=== PATIENT | male | born 1955 | race African-American/Black ===

== ENCOUNTER 2021-01-28 19:11 | Inpatient (IN) | payer MEDICARE, OTHER ==
[~2021-01-28] VITALS: Ht 185.4 cm; Wt 103.0 kg
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
[2021-01-28] MEDS ORDERED: DEXTROSE 50%-WATER 50 ML DISP.SYRIN ONE (19:32)
--- NOTE | 2021-01-28 19:38 | NUR ---
VERBAL ORDER DEXTROSE 50. CARRIED OUT
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
[2021-01-28] MEDS ORDERED: DEXTROSE 50%-WATER 50 ML DISP.SYRIN IV ONE (20:00)
[2021-01-28 20:50] LABS: BASOPHILS % (AUTO) 0.2 % (0.0-2.0); EOSINOPHILS % (AUTO) 0.4 % (0.0-6.0); HEMATOCRIT 49 % (39-51); HEMOGLOBIN 16.1 g/dL (13.5-17.5); LYMPHOCYTES % (AUTO) 8.5 % (20.0-44.0); MEAN CORPUSCULAR HGB CONC 33 g/dl (31.0-36.0); MEAN CORPUSCULAR VOLUME 81 fL (80-96); MONOCYTES # (AUTO) 1.3 /CMM (0.1-1.30); NEUTROPHILS # (AUTO) 9.6 /CMM (1.8-8.9); NEUTROPHILS % (AUTO) 79.9 % (43.0-81.0); PLATELET COUNT (AUTO) 175 /CMM (150-450); RED BLOOD CELL COUNT(AUTO) 5.97 MIL/uL (4.5-6.0)
[2021-01-28 21:06] LABS: ALANINE AMINOTRANSFERASE 23 U/L (12-78); ALBUMIN 3.9 g/dL (3.4-5.0); ALCOHOL, BLOOD < 3 mg/dL (0-0); ALKALINE PHOSPHATASE 91 U/L (46-116); ASPARTATE AMINOTRANSFERASE 47 U/L (15-37); BILIRUBIN,DIRECT 0.5 mg/dL (0.0-0.2); BILIRUBIN,TOTAL 1.6 mg/dL (0.2-1.0); CALCIUM, SERUM 9.6 mg/dL (8.5-10.1); CARBON DIOXIDE 25 mmol/L (21-32); CHLORIDE 97 mmol/L (98-107); CREATININE 1.2 mg/dL (0.6-1.3); GLUCOSE 78 mg/dL (74-106); POTASSIUM 4.1 mmol/L (3.5-5.1); SODIUM SERUM 134 mmol/L (136-145); UREA NITROGEN, BLOOD 19 mg/dL (7-18)
[2021-01-28 21:08] LABS: ACETAMINOPHEN < 10 ug/ml (10-30)
[2021-01-28 21:35] LABS: BILIRUBIN,URINE MODERATE (NEGATIVE); COLOR,URINE ORANGE (YELLOW); LEUKOCYTE ESTERASE ,URINE Negative (NEGATIVE); NITRITE, URINE Negative (NEGATIVE); PROTEIN,URINE 30 mg/dl (NEGATIVE); UGLUCOSE 100 MG/DL mg/dL (NEGATIVE)
[2021-01-28 22:04] LABS: BACTERIA,URINE Rare /HPF (None Seen); WBC,URINE 0-2 /HPF (0-3)
[2021-01-28 22:05] LABS: SQUAMOUS EPITHELIAL CELL,UR 0-2 /HPF (None Seen)
--- NOTE | 2021-01-28 22:35 | NUR ---
PT STILL NOTED HAVING HR OF 116. PROVIDER NOTIFIED. VERBAL ORDER RECEIVED TO GIVEN 1L NS BOLUS X 1. NOTED AND CARRIED OUT.
[2021-01-28] MEDS ORDERED: IV NS 0.9% 500 ML BAG IV ONE (23:00)
--- NOTE | 2021-01-28 23:37 | NUR ---
covid swab sent to lab
[2021-01-29] MEDS ORDERED: HYDROCODONE/APAP 5/325MG TABLET PO PRN
[2021-01-29] MEDS ORDERED: ZOLPIDEM TARTRATE 5 MG TABLET PO PRN
[2021-01-29] MEDS ORDERED: Z GUARD REMEDY 2 OZ OINT TP PRN
[2021-01-29] MEDS ORDERED: ACETAMINOPHEN 325 MG TABLET PO PRN
[2021-01-29] MEDS ORDERED: MAGNESIUM HYDROXIDE 30 ML UDC PO PRN
[2021-01-29] MEDS ORDERED: MAG HYDROX/AL HYDROX/SIMETH 30 ML UDC PO PRN
[2021-01-29] MEDS ORDERED: ONDANSETRON HCL/PF 4 MG/2 ML VIAL IVP PRN
[2021-01-29] MEDS ORDERED: IV D5/ 0.9% NACL 1,000 ML IV PRN
--- NOTE | 2021-01-29 00:36 | NUR ---
NEGATIVE COVID PER LAB
--- NOTE | 2021-01-29 00:40 | NUR ---
CALLED RN SUP FOR TELE BED
--- NOTE | 2021-01-29 01:39 | NUR ---
gave report to Pedro Pablo Silverman for meagan
[2021-01-29 02:00] VITALS: BP 143/90
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
--- NOTE | 2021-01-29 03:26 | NUR ---
RN NOTES: PATIENT COMPLAINED OF CHEST PAIN, LOCALISED NOT RADIATING TO SHOULDERS, V/S CHECKED BP-132/56 CA-102 RR-20 SPO2-97% ROOM AIR, NOTIFIED , SHE ORDERED TO DO TROPONIN, D-MIMER ALONG WITH OTHER LABS TO BE DONE AT 0400.SPOKE WITH TAYLER, REQUESTED TO DO BLOOD DRAW AT 0400.
--- NOTE | 2021-01-29 03:36 | NUR ---
RN NOTES: REQUEST FOR TYLENOL,GIVEN; EXPLAINED TO HIM WILL WAIT FOR THE PUBLIC HEALTH PROGRAM MANAGER AND WILL DO BLOOD TEST.
--- NOTE | 2021-01-29 03:56 | NUR ---
RN NOTES: - AROUND 0230 IVF D5NS AT 60 ML/HR STARTED, IV CANNULA ON THE RIGHT WRIST G#20 PATENT, BUT PATIENT IS COMPLAINING HE HAS PAIN AND HE REFUSE FOR IVF, HE SAID "DO IT LATER", TEMPORARILY REMOVE, HE ATE A LOT OF BARBER CRACKER , HE DRINK CRANBERRY AND APPLE JUICE, HE ALSO ATE JELLY AND PUDDING. INSTRUCT TO EAT SLOWLY.HE LOOKS VERY HUNGRY.
--- NOTE | 2021-01-29 04:03 | NUR ---
RN NOTES: POOL NURSE CAME IN TO EXTRACT BLOOD, AWAITING FOR RESULT, KEPT ON CLOSE WATCH.
--- NOTE | 2021-01-29 05:53 | NUR ---
RN NOTES: -TROPONIN 0.017, HE WAS GIVEN APPLE SAUCE , HE WANTS TO EAT MORE EXPLAINED TO HIM TO EAT SLOWLY AND NOT IN A WILLIS.AFTER HE EAT HE WAS ABLE TO SLEEP AND REST.
[2021-01-29] MEDS ORDERED: SERT-438 PO (07:03)
[2021-01-29] MEDS ORDERED: ENAL10TA39 PO (07:03)
[2021-01-29] MEDS ORDERED: OMEP20CA15 PO (07:03)
[2021-01-29] MEDS ORDERED: CLOP75TA15 PO (07:03)
[2021-01-29] MEDS ORDERED: METO25TA20 PO (07:03)
[2021-01-29] MEDS ORDERED: TRAZ-257 PO (07:03)
[2021-01-29] MEDS ORDERED: ROSU20TA32 PO (07:03)
--- NOTE | 2021-01-29 07:09 | NUR ---
RN NOTES: - HE REQUEST TO START IV FLUIDS LATER, TRIED TO EXPLAIN THE RISK AND BENEFITS,HE WENT BACK TO SLEEP. - AWAITING FOR OTHER LAB RESULTS.NO MORE CHEST PAIN. -ENDORSED FOR CONTINUITY OF CARE.
[2021-01-29] MEDS ORDERED: RISP1TAB97 PO (07:11)
[2021-01-29] MEDS ORDERED: PRAZ1CAP17 PO (07:11)
--- NOTE | 2021-01-29 07:54 | NUR ---
MS/RN OPENING NOTES RECEIVED PATIENT ON BED AWAKE ALERT AND ORIENTED X 2-3. PATIENT IS ON ROOM AIR SATURATING WELL. PATIENT IN NO APPARENT RESPIRATORY DISTRESS NOTED. NO COMPLAINED OF PAIN NOTED AT THIS TIME. WILL CONTINUE TO MONITOR.
[2021-01-29 08:00] VITALS: BP 126/78
[2021-01-29] MEDS: ENOXAPARIN SODIUM 40 MG/0.4 ML DISP.SYRIN SQ SCH (08:22)
[2021-01-29] MEDS: PANTOPRAZOLE 40 MG TABLET.DR PO SCH (09:55)
[2021-01-29] MEDS: SERTRALINE HCL 50 MG TABLET PO SCH (09:55)
[2021-01-29] MEDS: CLOPIDOGREL BISULFATE 75 MG TABLET PO SCH (09:56)
[2021-01-29] MEDS: ENALAPRIL MALEATE (10 MG) 10 MG TABLET PO SCH (09:56)
[2021-01-29] MEDS ORDERED: ASPI-1169 PO (14:34)
[2021-01-29] MEDS ORDERED: risperiDONE 1 MG TABLET PO PRN (15:00)
[2021-01-29 16:00] VITALS: BP 115/58
[2021-01-29] MEDS: METOPROLOL TARTRATE 25 MG TABLET PO SCH (16:23)
--- NOTE | 2021-01-29 16:24 | NUR ---
MS/RN NOTES BP 115/58 P 84 METOPROLOL 25 MG 1 TAB PO WAS NOT GIVEN. WILL CONTINUE TO MONITOR.
--- NOTE | 2021-01-29 16:50 | NUR ---
Patient lives with family. He is ambulatory and independent with adl's.Has no DME or homehealth reported. Current dc plan is to return home. Addendum: 01/29/21 at 1650 by SHARMILA BETANCOURT RN Amended: Links added.
[2021-01-29] MEDS: ATORVASTATIN 40 MG TABLET PO SCH (17:07)
[2021-01-29] MEDS: PRAZOSIN HCL 1 MG CAPSULE PO SCH (17:07)
--- NOTE | 2021-01-29 17:08 | NUR ---
MS/RN NOTES BP 115/58 P 84 MINIPRES 1 MG WAS NOT GIVEN. WILL CONTINUE TO MONITOR.
--- NOTE | 2021-01-29 18:44 | NUR ---
MS/RN CLOSING NOTES PATIENT IS ON BED. ALERT AND ORIENTED X3. PATIENT IS ON ROOM AIR SATURATION 97%. PATIENT IN NO APPARENT RESPIRATORY DISTRESS NOTED. NO COMPLAINED OF PAIN NOTED AT THIS TIME. SEEN AND EXAMINED BY MD WITH ORDERS MADE AND CARRIED OUT. ALL DUE MEDICATIONS WAS GIVEN. IV ACCESS AT RIGHT WRIST # 20G PATENT AND INTACT. SAFETY PRECAUTIONS WAS IN PLACED. BED IN LOWEST POSITION AND LOCKED. SIDE RAILS UP X2. CALL LIGHT WITHIN REACH. SEEN AND ASSESS BY DR. TIERNEY. WILL ENDORSED TO WEDDING FLORIST FOR BASSAM.
[2021-01-29 20:00] VITALS: BP 141/84
[2021-01-29] MEDS: TRAZODONE 50 MG TABLET PO SCH (21:48)
[2021-01-29] MEDS: OLANZAPINE ZYDIS 5 MG TAB.RAPDIS PO SCH (21:48)
[2021-01-29] MEDS ORDERED: risperiDONE 1 MG TABLET PO SCH (22:00)
[2021-01-30 06:30] LABS: BASOPHILS % (AUTO) 0.4 % (0.0-2.0); EOSINOPHILS % (AUTO) 2.4 % (0.0-6.0); HEMATOCRIT 43 % (39-51); HEMOGLOBIN 14.3 g/dL (13.5-17.5); LYMPHOCYTES # (AUTO) 1.1 /CMM (0.8-4.8); LYMPHOCYTES % (AUTO) 22.1 % (20.0-44.0); MEAN CORPUSCULAR HGB CONC 33 g/dl (31.0-36.0); MEAN CORPUSCULAR VOLUME 81 fL (80-96); MONOCYTES # (AUTO) 0.6 /CMM (0.1-1.30); MONOCYTES % (AUTO) 11.1 % (2.0-12.0); NEUTROPHILS # (AUTO) 3.3 /CMM (1.8-8.9); PLATELET COUNT (AUTO) 174 /CMM (150-450); RED BLOOD CELL COUNT(AUTO) 5.31 MIL/uL (4.5-6.0); WHITE BLOOD COUNT (AUTO) 5.2 K/uL (4.3-11.0)
--- NOTE | 2021-01-30 06:30 | NUR ---
MS RN NOTES AWAKE & RESPONSIVE. NOT IN ANY DISTRESS. NO SOB NOTED. DENIES ANY PAIN OR DISCOMFORT AT THIS TIME. MONITORED ACCORDINGLY. CALL LIGHT WITHIN REACH. BED IN LOWEST POSITION. SR UP X 2 FOR SAFETY. WILL ENDORSE TO NEXT SHIFT.
[2021-01-30 06:37] LABS: CALCIUM, SERUM 8.4 mg/dL (8.5-10.1); CREATININE 0.9 mg/dL (0.6-1.3); MAGNESIUM 2.3 mg/dL (1.8-2.4); PHOSPHORUS 4.2 mg/dL (2.5-4.9); POTASSIUM 4.4 mmol/L (3.5-5.1)
[2021-01-30] MEDS: PANTOPRAZOLE 40 MG TABLET.DR PO SCH (07:35)
--- NOTE | 2021-01-30 07:41 | NUR ---
MS/RN OPENING NOTES RECEIVED PATIENT ON BED AWAKE ALERT AND ORIENTED X 3. PATIENT IS ON ROOM AIR SATURATING WELL. PATIENT IN NO APPARENT RESPIRATORY DISTRESS NOTED. NO COMPLAINED OF PAIN NOTED AT THIS TIME. WILL CONTINUE TO MONITOR.
[2021-01-30 08:00] VITALS: BP 135/78
[2021-01-30] MEDS: CLOPIDOGREL BISULFATE 75 MG TABLET PO SCH (08:16)
[2021-01-30] MEDS: ENALAPRIL MALEATE (10 MG) 10 MG TABLET PO SCH (08:16)
[2021-01-30] MEDS: METOPROLOL TARTRATE 25 MG TABLET PO SCH ×2 (08:16→17:00)
[2021-01-30] MEDS: SERTRALINE HCL 50 MG TABLET PO SCH (08:17)
[2021-01-30] MEDS: ENOXAPARIN SODIUM 40 MG/0.4 ML DISP.SYRIN SQ SCH (08:21)
[2021-01-30] MEDS ORDERED: PRAZOSIN HCL 1 MG CAPSULE PO SCH (09:00)
[2021-01-30] MEDS ORDERED: METOPROLOL TARTRATE 25 MG TABLET PO SCH (09:00)
[2021-01-30 16:00] VITALS: BP 119/72
[2021-01-30] MEDS: ATORVASTATIN 40 MG TABLET PO SCH (17:21)
[2021-01-30] MEDS: PRAZOSIN HCL 1 MG CAPSULE PO SCH (17:22)
--- NOTE | 2021-01-30 17:24 | NUR ---
MS/RN NOTES BP 119/72 P 82 METOPROLOL 25 MG 1 TAB PO AND MINIPRES 1MG 1 TAB PO WAS NOT GIVEN.
--- NOTE | 2021-01-30 18:44 | NUR ---
MS/RN CLOSING NOTES PATIENT IS ON BED. ALERT AND ORIENTED X 2-3. PATIENT IS ON ROOM AIR SATURATION 96%. PATIENT IN NO APPARENT RESPIRATORY DISTRESS NOTED. NO COMPLAINED OF PAIN NOTED AT THIS TIME. SEEN AND EXAMINED BY MD WITH ORDERS MADE AND CARRIED OUT. ALL DUE MEDICATIONS WAS GIVEN. IV ACCESS LEFT HAND # 22G PATENT AND INTACT. SAFETY PRECAUTIONS WAS IN PLACED. BED IN LOWEST POSITION AND LOCKED. SIDE RAILS UP X2. CALL LIGHT WITHIN REACH. WILL ENDORSED TO PROSTHETIC ASSISTANT FOR BASSAM.
--- NOTE | 2021-01-30 19:30 | NUR ---
MS/RN OPENING NOTES RECEIVED PATIENT RESTING IN BED. PATIENT IS ALERT AND ORIENTED X 3. PATIENTS BREATHING IS EVEN AND UNLABORED. PATIENT SHOWS NO SIGNS OF SOB OR RESPIRATORY DISTRESS. PATIENT STATES NO PAIN AT THIS TIME. IV ACCESS LEFT HAND INTACT FLUSHING WELL. SAFETY MEASURES ARE IN PLACE, BED IS LOCKED AND PLACED IN THE LOW POSITION, SIDE RAILS UP X 2, CALL LIGHT IS WITHIN REACH. WILL CONTINUE TO MONITOR THROUGH OUT SHIFT.
[2021-01-30 20:00] VITALS: BP 126/75
[2021-01-30] MEDS: TRAZODONE 50 MG TABLET PO SCH (22:09)
[2021-01-30] MEDS: OLANZAPINE ZYDIS 5 MG TAB.RAPDIS PO SCH (22:09)
--- NOTE | 2021-01-31 06:40 | NUR ---
MS/RN CLOSING NOTES PATIENT RESTING IN BED. PATIENT IS ALERT AND ORIENTED X 3. PATIENTS BREATHING IS EVEN AND UNLABORED. PATIENT SHOWS NO SIGNS OF SOB OR RESPIRATORY DISTRESS. IV ACCESS LEFT HAND INTACT FLUSHING WELL. SAFETY MEASURES ARE IN PLACE, BED IS LOCKED AND PLACED IN THE LOW POSITION, SIDE RAILS UP X 2, CALL LIGHT IS WITHIN REACH. WILL ENDORSE CARE TO DAY SHIFT NURSE.
--- NOTE | 2021-01-31 07:50 | NUR ---
MS RN OPENING NOTES PATIENT RESTING IN BED, PATIENT AOX3, BREATHING IS EVEN AND UNLABORED, NO SIGNS OF SOB OR RESPIRATPRY DISTRESS, IV ACCESS L HAND INTACT AND PATENT, BED LOCKED IN LOWEST POSITION , SIDE RAILS X2 , CALL LIGHT WITHIN EASY REACH AND ANSWERED PROMPTLY.
[2021-01-31 08:00] VITALS: BP 127/90
[2021-01-31] MEDS: PANTOPRAZOLE 40 MG TABLET.DR PO SCH (08:28)
[2021-01-31] MEDS: CLOPIDOGREL BISULFATE 75 MG TABLET PO SCH (08:28)
[2021-01-31] MEDS: ENOXAPARIN SODIUM 40 MG/0.4 ML DISP.SYRIN SQ SCH (08:28)
[2021-01-31] MEDS: METOPROLOL TARTRATE 25 MG TABLET PO SCH ×2 (08:29→17:22)
[2021-01-31] MEDS: ENALAPRIL MALEATE (10 MG) 10 MG TABLET PO SCH (08:30)
[2021-01-31] MEDS: SERTRALINE HCL 50 MG TABLET PO SCH (08:30)
[2021-01-31] MEDS ORDERED: OLAN5TAB6 PO (12:56)
--- NOTE | 2021-01-31 15:30 | NUR ---
It Program Auditor Consult: It Program Auditor consult requested for a substance abuse evaluation. Patient is a 65-year-old, black male who was admitted to the med-surg unit. Per chart, patient was brought in by paramedics due to hypoglycemia. SW met with the patient and discussed resources and discharge plan. Patient was alert and oriented x4. Patient was well-groomed. Patient stated that he lives with his mother and brother. Pt stated that he felt off and maybe had an anxiety attack. Per toxicology report, pt is positive for Amphetamine and Cocaine. Pt stated that he does not take these substances regularly and confirmed that he has a history of taking these substances. Pt stated he has a history of alcohol use and has a beer 1-2 times a week. Pt stated that he has no history of mental illness, hallucinations or delusions. Pt denies any thoughts of suicide or homicide. Patient will be returning to his prior living arrangements with his family and stated that his brother will be picking him up from the hospital. Patients needs for community resources were discussed. Patient was receptive to receiving resources for substance abuse treatment. Patient was provided with an Addiction Resources for Drugs and Alcohol. Substance Abuse resources provided included: [facility] Substance Abuse Self-Helpline ([facility]) ; [facility] [address] [facility]. [place] [id number] ; [place] [id number] [facility] [address] ; [facility] [address] [facility] [address] ; [facility] [address] [facility] [id number] ; [facility] [address] [facility] [address] ; [facility] [address] [facility] [address] ; [facility]stance Abuse Helpl[facility])-[facility] ; [facility] ; [facility]; [facility]; [facility]; [facility] [place]; [place] [facility] [place]; [facility] [place]; [facility]; [facility], [facility]. Nafisa Fontenot; Alcohol[facility]; [facility] ; Marijuana Anonymous [facility]; Narcotics Anonymous www.na.org;
--- NOTE | 2021-01-31 15:47 | NUR ---
RN NOTES SPOKE W/ PHARMACIST AT [facility] ([phone]) AND INFORMED ABOUT CHANGE IN PREFERRED PHARMACY FOR PATIENT; WILL BE ABLE TO TRANSFER INFORMATION AND MEDICATION RECONCILIATION TO PREFERRED PHARMACY LOCATION.
[2021-01-31 16:00] VITALS: BP 111/68
[2021-01-31] MEDS: ATORVASTATIN 40 MG TABLET PO SCH (17:22)
[2021-01-31 17:26] VITALS: BP 111/68
[2021-01-31] MEDS: PRAZOSIN HCL 1 MG CAPSULE PO SCH (17:26)
--- NOTE | 2021-01-31 19:21 | NUR ---
LEARNING DISABILITIES TEACHER NOTES PATIENT WAS SEEN BY DR. FENG TODAY WITH ORDER FOR DISCHARGE TO HOME. DC INSTRUCTIONS AND EDUCATION PROVIDED TO PATIENT, FORM AND BELONGING LISTS SIGNED BY PATIENT. ALL BE LONGINGS ACCOUNTED FOR. NAME,ARMBAND, IV LINE REMOVED, MEDICATION RECONCILED AND UPDATED WITH PREFERRED PHARMACY. PT WAS ACCOMPANIED TO THE LOBBY BY [facility], VIA WHEELCHAIR AND PATIENT PICKED UP BY BROTHER VIA PRIVATE CAR. CHARGE NURSE AND MD AWARE OF DISCHARGE.
== END 2021-01-31 19:15 | disposition home or self-care (01) | DRG 638 ==
LOC: ER 19:18 → MED 01-29 01:41
PROVIDERS: ADMIT Nurse Practitioner Acute Care; ATTEND Student in an Organized Health Care Education/Training Program
DX: E11.649 Type 2 diabetes mellitus with hypoglycemia without coma (principal); D68.59 Other primary thrombophilia; E87.1 Hypo-osmolality and hyponatremia; J90 Pleural effusion, not elsewhere classified; G92 Toxic encephalopathy; F15.10 Other stimulant abuse, uncomplicated; I10 Essential (primary) hypertension; G47.00 Insomnia, unspecified; D72.829 Elevated white blood cell count, unspecified; E66.9 Obesity, unspecified; Z82.49 Family history of ischemic heart disease and other diseases of the circulatory system; Z68.29 Body mass index [BMI] 29.0-29.9, adult; E86.1 Hypovolemia; F20.9 Schizophrenia, unspecified; I25.10 Atherosclerotic heart disease of native coronary artery without angina pectoris; Z98.61 Coronary angioplasty status; F12.10 Cannabis abuse, uncomplicated; F29 Unspecified psychosis not due to a substance or known physiological condition; F41.9 Anxiety disorder, unspecified; R79.89 Other specified abnormal findings of blood chemistry
CPT/HCPCS: 36415; 70450-TC; 71045-TC; 80048-TC; 80061-TC; 80076-TC; 81001; 82962-TC; 83735-TC; 84100-TC; 84484-TC; 85025-TC; 85378-TC; 85730-TC; 87081-TC; C9803; G0378; G0480; J1650; J7030